=== PATIENT | female | born 1985 | race Caucasian/White ===

== ENCOUNTER → 2016-06-24 | Outpatient (REF) | payer BC | LOC: M SFHCLERA 09:35 | PROVIDERS: ATTEND Family Medicine | DX: N92.6 Irregular menstruation, unspecified (principal) ==

== ENCOUNTER → 2016-06-25 | Outpatient (CLI) | payer BC ==
--- NOTE | 2016-06-25 11:03 | REP ---
PELVIC ULTRASOUND: Real-time sonographic evaluation of pelvis performed utilizing transabdominal and endovaginal technique. Bladder measures 9.5 x 7.4 x 10.0 cm. Uterus is mildly enlarged measuring 12.0 x 5.2 x 6.5 cm. Endometrial thickness is 18 mm. There is no endometrial fluid collection. Right ovary measures 3.3 x 1.9 x 2.8 cm and left ovary 3.5 x 1.9 x 2.1 cm. There is blood flow seen in each ovary with duplex Doppler evaluation, with no torsion. Adjacent to the right ovary is an oval fluid structure measuring 5.3 x 2.3 x 1.4 cm. This may represent hydrosalpinx. There is no other evidence of adnexal mass or free fluid. IMPRESSION: Oval area of fluid adjacent to the right ovary may represent hydrosalpinx measuring 5.3 x 2.3 x 1.4 cm. Further evaluation may be made with MRI if clinically indicated. Endometrial thickness is 18 mm with no endometrial fluid collection. Signed by Mahendra Callaway MD 06/25/2016 01:13 P
== END ==
LOC: M LRY 08:13
PROVIDERS: ATTEND Family Medicine
DX: N92.6 Irregular menstruation, unspecified (principal); N94.89 Other specified conditions associated with female genital organs and menstrual cycle

== ENCOUNTER → 2016-06-25 | Outpatient (REF) | payer BC ==
[2016-06-25 11:14] LABS: MEAN CORPUSCULAR HEMOGLOBIN 30.1 pg (27.0-33.0); MEAN CORPUSCULAR HGB CONC 33.5 g/dl (32.0-36.5); MEAN CORPUSCULAR VOLUME 89.9 fl (80.0-96.0); RED CELL DISTRIBUTION WIDTH 13.1 % (11.5-14.5); WHITE BLOOD COUNT 6.1 K/mm3 (4.0-10.0)
[2016-06-25 11:15] LABS: ALBUMIN 4.4 GM/DL (3.2-5.2); ALBUMIN/GLOBULIN RATIO 1.42 (1.00-1.93); ALKALINE PHOSPHATASE 50 U/L (45-117); ALT/SGPT 18 U/L (12-78); ANION GAP 10 MEQ/L (8-16); AST/SGOT 10 U/L (15-37); BILIRUBIN,TOTAL 0.4 MG/DL (0.2-1.0); BLOOD UREA NITROGEN 11 MG/DL (7-18); CALCIUM LEVEL 9.4 MG/DL (8.5-10.1); CARBON DIOXIDE LEVEL 29 MEQ/L (21-32); CHLORIDE LEVEL 104 MEQ/L (98-107); CREATININE FOR GFR 0.73 MG/DL (0.55-1.02); GLOMERULAR FILTRATION RATE > 60.0 (>60); GLUCOSE, FASTING 77 MG/DL (70-105); POTASSIUM SERUM 4.4 MEQ/L (3.5-5.1); SODIUM LEVEL 143 MEQ/L (136-145); TOTAL PROTEIN 7.5 GM/DL (6.4-8.2)
== END ==
LOC: M SFHCLERA 08:25
PROVIDERS: ATTEND Family Medicine
DX: N92.6 Irregular menstruation, unspecified (principal)

== ENCOUNTER 2016-06-29 10:38 | Emergency (ER) | payer BC ==
[2016-06-29] MEDS ORDERED: KETOROLAC 30 MG/ML VIAL (J1885) As Ordered ONE (13:47)
--- NOTE | 2016-06-29 17:25 | REP ---
MRI study of the pelvis without contrast: History: Pelvic pain, possible hydrosalpinx. Comparison is made with sonography from June 25, 2016. MRI technique: Axial, coronal, and sagittal imaging planes are utilized. T1 and T2-weighted scans are obtained with and without fat saturation. MRI findings: There are Nabothian cysts in the cervix. Uterine dimensions are somewhat enlarged at 10.8 x 5.8 x 7.7 cm. No focal uterine mass lesion is seen. No free fluid is seen in the cul-de-sac. No evidence of hydrosalpinx or other abnormal cystic lesion. Normal ovarian follicles are seen. The largest of these is at the superior margin of the right ovary measuring 1.6 cm. The ovaries are somewhat high in the pelvis bilaterally. Cortical and medullary bone signal intensity is normal. No abdominal wall defect is seen. Impression: Mild uterine enlargement. No evidence of hydrosalpinx or other abnormal fluid collection. Normal ovaries bilaterally. Multiple Nabothian cysts. Signed by King Peace MD 06/29/2016 05:38 P
--- NOTE | 2016-06-29 17:28 | EDDOCDS ---
Physician Documentation [facility] Name: Paulo Zhou Age: 31 yrs Sex: Female : 1985 Arrival Date: 06/29/2016 Time: 10:38 Bed I3 / M3 Private MD: Geronimo Olmstead MD Disposition: 06/29/16 17:11 Discharged to Home/Self Care. Impression: Abdominal and pelvic pain - right lower quadrant unspecified. enlarged uterus and nabothian cysts on MRI. - Condition is Stable. - Discharge Instructions: Abdominal Pain, Adult, Pelvic Pain, Female. - Prescriptions for Ibuprofen 800 mg Oral Tablet - take 1 tablet by ORAL route every 8 hours As needed take with food; 30 tablet. ZOFRAN ODT 4 mg - dissolve 1 tablet by ORAL route 4 times per day As needed do not chew, do not swallow whole; 10 tablet. - Medication Reconciliation, Local Pharmacy Hours form. - Follow up: Geronimo Olmstead; When: Call to arrange an appointment; Reason: Recheck today's complaints, Continuance of care. Follow up: Tawanda Oro; When: Call to arrange an appointment; Reason: Further diagnostic work-up, To establish care. - Problem is new. - Symptoms have improved. Historical: - Allergies: no known allergies; - Home Meds: 1. none - PMHx: none; - PSHx: ; Tubal ligation; Appendectomy; right knee surgery; - Social history: Smoking status: Patient states former smoker of tobacco. No barriers to communication noted, The patient speaks fluent Guatemalan, Speaks appropriately for age. - Family history: Not pertinent. - : The pt / caregiver states he / she is not on anticoagulants. Home medication list is obtained from the patient. - Exposure Risk Screening:: None identified. 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 3 in. (160.02 cm) (R); Pain 7/10; 14:20 Pain 2/10; mcp 15:50 BP 152 / 5; Pulse 79; Resp 18; Temp 98.8; Pulse Ox 99% ; Pain 6/10; jam1 17:12 BP 110 / 72; Pulse 74; Resp 18; Temp 98.0; Pulse Ox 99% ; Pain 5/10; jam1 10:40 Body Mass Index 25.33 (64.86 kg, 160.02 cm) elp MDM: 11:59 UCG by Nursing ordered. hs1 12:00 UA Ordered. EDMS 12:54 Financial registration complete. lg 12:59 UA Reviewed. ar2 13:01 IV Saline Lock ordered. ar2 13:01 Undress patient appropriately for examination ordered. ar2 13:07 [facility] Payment Agreement was scanned into [employer] and attached to record. lg 13:41 MRI Screening Tool - Place on chart, inform RN ordered. ar2 13:41 ketorolac 30 mg IVP once ordered. ar2 13:53 MRI Screening Tool - Place on chart, inform RN complete. jam1 14:15 MRI PELVIS WITHOUT CONTRAST Ordered. EDMS Point of Care Testing: Urine : 12:18 hCG Reading: Negative; Control Reading: Positive; jrd Ranges: Administered Medications: 13:50 Drug: ketorolac 30 mg [ketorolac 30 mg/mL (1 mL) injection solution (1 mL)] Route: IVP; mcp Site: left antecubital; 14:20 Follow up: Pain 2/10 Adult; Response: Pain is decreased mcp Signatures: Dispatcher [employer] EDMS Muriel Miramontes RN RN srm Peters, Mary, RN RN mcp Murphy, Jane, RELEASE ENGINEER RELEASE ENGINEER jam1 Twila Holland, Reg Reg lg Alberto Covington PA-C PA-C ar2 Holly Copeland RN RN hs1 The chart was reviewed and I authenticate all verbal orders and agree with the evaluation and treatment provided.Corrections: (The following items were deleted from the chart) 13:43 13:42 MRI-Abdomen without contrast+MR ordered. EDMS EDMS 13:50 13:50 MRI-Abdomen without contrast+MR ordered. EDMS EDMS Attachments: 13:07 [facility] Payment Agreement lg MTDD
--- NOTE | 2016-06-29 17:28 | EDDOCDS ---
Nurse's Notes [facility] Name: Paulo Zhou Age: 31 yrs Sex: Female : 1985 Arrival Date: 06/29/2016 Time: 10:38 Bed I3 / M3 Private MD: Geronimo Olmstead MD Diagnosis: Abdominal and pelvic pain-right lower quadrant unspecified. enlarged uterus and nabothian cysts on MRI Presentation: 06/29 10:44 Presenting complaint: Patient states: right lower abd since last tue. seen at [facility] urgent care and had u/s done then and dx right fallopian tube was enlarged. had blood work there today also. seen at again today and sent here for further exam. headache, nausea. for the past couple of months change in her menstrual period. Adult Sepsis Screening: The patient does not have new or worsening altered mentation. Patient's respiratory rate is less than 22. Systolic blood pressure is greater than 100. Patient has a qSOFA score of 0- Negative Sepsis Screen. Suicide/Homicide risk assessment- the patient denies having any suicidal and/or homicidal ideations and does not present with any other emotional, behavioral or mental health complaints. Status: Patient is not a banking services advisor or dependent. Transition of care: Patient was received from [facility]. 10:44 Acuity: SAMIR Level 3 [facility] 10:44 Method Of Arrival: Walkin/Carried/Asstd [facility] Triage Assessment: 10:46 General: Appears uncomfortable, Behavior is appropriate for age, cooperative. Pain: [facility] Pain currently is 8 out of 10 on a pain scale. 10:46 HIV screening NA for this visit Offered previously. 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 none - PMHx: none; - PSHx: ; Tubal ligation; Appendectomy; right knee surgery; - Social history: Smoking status: Patient states former smoker of tobacco. No barriers to communication noted, The patient speaks fluent Yoruba, Speaks appropriately for age. - Family history: Not pertinent. - : The pt / caregiver states he / she is not on anticoagulants. Home medication list is obtained from the patient. - Exposure Risk Screening:: None identified. Screenin:34 Screening information is obtained from the patient. Fall risk: No risks identified. mcp Assistance ADL's: requires no assistance with activities of daily living. Abuse/DV Screen: The patient / caregiver reports he/she is: not in a situation that causes fear, pain or injury. Nutritional screening: No deficits noted. Advance Directives: Currently, there is no health care proxy. There is no active DNR order. There is no Power of Can Bander Operator. home support is adequate. Assessment: 13:33 General: Appears uncomfortable, Behavior is cooperative. Pain: Location: right lower mcp quadrant Pain currently is 8 out of 10 on a pain scale. Neurological: No deficits noted. Respiratory: Airway is patent Respiratory effort is even, unlabored. Derm: Skin is pink, warm & dry. 14:30 General: To MRI via wheelchair. mcp 15:30 General: Appears in no apparent distress, Behavior is cooperative, Back from MRI via mcp wheelchair. Neurological: No deficits noted. Respiratory: Airway is patent Respiratory effort is even, unlabored. Derm: Skin is pink, warm & dry. 16:43 General: Resting on stretcher awaiting MRI results. mcp 17:25 General: Appears in no apparent distress, Behavior is cooperative. Neurological: No mcp deficits noted. Respiratory: Airway is patent Respiratory effort is even, unlabored. Derm: Skin is pink, warm & dry. Vital Signs: 10:40 BP 117 / 77; Pulse 81; Resp 18; Temp 98.5(O); Pulse Ox 99% on R/A; Weight 64.86 kg (R); elp Height 5 ft. 3 in. (160.02 cm) (R); Pain 7/10; 14:20 Pain 2/10; mcp 15:50 BP 152 / 5; Pulse 79; Resp 18; Temp 98.8; Pulse Ox 99% ; Pain 6/10; jam1 17:12 BP 110 / 72; Pulse 74; Resp 18; Temp 98.0; Pulse Ox 99% ; Pain 5/10; jam1 10:40 Body Mass Index 25.33 (64.86 kg, 160.02 cm) [facility] Vitals: 10:40 Log In Time: June 29, 2016 at 10:35. [facility] ED Course: 10:40 Patient visited by Mara Choudhury PCA. elp 10:40 Geronimo Olmstead is Private Physician. elp 10:40 Patient visited by Mara Choudhury PCA. elp 10:40 Patient moved to Waiting elp 10:41 Patient moved to Pre RCE elp 10:45 Triage Initiated srm 11:58 Patient moved to Triage 1 hs1 12:23 Patient visited by Holly Copeland RN. hs1 12:43 [facility] ar2 12:43 Malik Awan MD is Attending Physician. ar2 12:43 Patient visited by Alberto Covington PA-C. ar2 13:07 [facility] Payment Agreement was scanned into [employer] and attached to record. lg 13:23 Patient moved to I3 / cj 13:33 Inserted saline lock: 20 gauge in left antecubital area The patient tolerated the mcp procedure well. 13:34 Patient visited by Kristine Heredia RN. mcp 13:34 The patient / caregiver is instructed regarding the plan of care and ED course. Patient mcp has correct armband on for positive identification. Placed in gown. Bed in low position. Call light in reach. Adult w/ patient. 14:51 Patient moved to MRI jam1 15:14 Patient moved to I3 / jam1 16:45 Patient visited by Kristine Heredia RN. mcp 17:10 Geronimo Olmstead is Referral Physician. ar2 17:10 Tawanda Oro is Referral Physician. ar2 17:25 Discontinued lock intact, bleeding controlled, pressure dressing applied, No mcp redness/swelling at site. No procedures done that require assistance. Administered Medications: 13:50 Drug: ketorolac 30 mg [ketorolac 30 mg/mL (1 mL) injection solution (1 mL)] Route: IVP; mcp Site: left antecubital; 14:20 Follow up: Pain 2/10 Adult; Response: Pain is decreased mcp Point of Care Testing: Urine : 12:18 hCG Reading: Negative; Control Reading: Positive; jrd Ranges: Order Results: Lab Order: UA; SPEC'M 06/29/16 12:10 Test: APPEARANCE, URINE; Value: CLEAR; Range: CLEAR; Status: F Test: COLOR, URINE; Value: YELLOW; Range: YELLOW; Status: F Test: PH,URINE; Value: 5.0; Range: 5.0-9.0; Units: UNITS; Status: F Test: SPECIFIC GRAVITY URINE AUTO; Value: 1.010; Range: 1.002-1.035; Status: F Test: PROTEIN, URINE AUTO; Value: NEGATIVE; Range: NEGATIVE; Units: mg/dL; Status: F Test: GLUCOSE, URINE (UA) AUTO; Value: NEGATIVE; Range: NEGATIVE; Units: mg/dL; Status: F Test: KETONE, URINE AUTO; Value: NEGATIVE; Range: NEGATIVE; Units: mg/dL; Status: F Test: UROBILINOGEN, URINE AUTO; Value: 0.2; Range: 0.0-2.0; Units: mg/dL; Status: F Test: BILIRUBIN, URINE AUTO; Value: NEGATIVE; Range: NEGATIVE; Status: F Test: NITRITE, URINE AUTO; Value: NEGATIVE; Range: NEGATIVE; Status: F Test: LEUKOCYTE ESTERASE, URINE AUTO; Value: NEGATIVE; Range: NEGATIVE; Status: F Test: BLOOD, URINE BLOOD; Value: NEGATIVE; Range: NEGATIVE; Status: F Test: WBC, URINE AUTO; Value: 9; Range: 0-3; Abnormal: Above high normal; Units: /HPF; Status: F Test: RBC, URINE AUTO; Value: 3; Range: 0-3; Units: /HPF; Status: F Test: BACTERIA, URINE AUTO; Value: NEGATIVE; Range: NEGATIVE; Status: F Test: SQUAMOUS EPITHELIAL CELL UR AU; Value: 3; Range: 0-6; Units: /HPF; Status: F Test: MUCUS, URINE; Value: SMALL; Range: NEGATIVE; Status: F Test: HYALINE CAST, URINE AUTO; Value: 0; Range: 0-1; Units: /LPF; Status: F Outcome: 17:11 Discharge ordered by Provider. ar2 17:25 Discharge Assessment: patient administered narcotics - no. The following High Risk [facility] Discharge criteria are identified: None. Discharged to home ambulatory, with significant other. Condition: stable. Discharge instructions given to patient, Instructed on discharge instructions, follow up and referral plans. medication usage, Demonstrated understanding of instructions, medications, Pt was receptive of discharge instructions/ teaching. Prescriptions given X 2. MRI Study completed. Property sent home with patient. 17:27 Patient left the ED. [facility] Signatures: Muriel Miramontes RN RN srm Peters, Mary, RN RN mcp Murphy, Jane, KIERAN MANUFACTURING SR ENGINEER Twila Santoyo, Reg Reg lg Alberto Covington, NIA PAAmadou ar2 Holly Copeland, RN RN hs1 Marisol SeayRN RN cjh Mara Choudhury, MANUFACTURING SR ENGINEER MANUFACTURING SR ENGINEER elp Joni Rothman, MANUFACTURING SR ENGINEER MANUFACTURING SR ENGINEER jrd MTDD
--- NOTE | 2016-07-01 18:28 | EDDOCDS ---
Physician Documentation [facility] Name: Paulo Zhou Age: 31 yrs Sex: Female : 1985 Arrival Date: 06/29/2016 Time: 10:38 Bed I3 / M3 Private MD: Geronimo Olmstead MD Disposition: 06/29/16 17:11 Discharged to Home/Self Care. Impression: Abdominal and pelvic pain - right lower quadrant unspecified. enlarged uterus and nabothian cysts on MRI. - Condition is Stable. - Discharge Instructions: Abdominal Pain, Adult, Pelvic Pain, Female. - Prescriptions for Ibuprofen 800 mg Oral Tablet - take 1 tablet by ORAL route every 8 hours As needed take with food; 30 tablet. ZOFRAN ODT 4 mg - dissolve 1 tablet by ORAL route 4 times per day As needed do not chew, do not swallow whole; 10 tablet. - Medication Reconciliation, Local Pharmacy Hours form. - Follow up: Geronimo Olmstead; When: Call to arrange an appointment; Reason: Recheck today's complaints, Continuance of care. Follow up: Tawanda Oro; When: Call to arrange an appointment; Reason: Further diagnostic work-up, To establish care. - Problem is new. - Symptoms have improved. Historical: - Allergies: no known allergies; - Home Meds: 1. none - PMHx: none; - PSHx: ; Tubal ligation; Appendectomy; right knee surgery; - Social history: Smoking status: Patient states former smoker of tobacco. No barriers to communication noted, The patient speaks fluent Rwandan, Speaks appropriately for age. - Family history: Not pertinent. - : The pt / caregiver states he / she is not on anticoagulants. Home medication list is obtained from the patient. - Exposure Risk Screening:: None identified. 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 3 in. (160.02 cm) (R); Pain 7/10; 14:20 Pain 2/10; mcp 15:50 BP 152 / 5; Pulse 79; Resp 18; Temp 98.8; Pulse Ox 99% ; Pain 6/10; jam1 17:12 BP 110 / 72; Pulse 74; Resp 18; Temp 98.0; Pulse Ox 99% ; Pain 5/10; jam1 10:40 Body Mass Index 25.33 (64.86 kg, 160.02 cm) elp MDM: 11:59 UCG by Nursing ordered. hs1 12:00 UA Ordered. EDMS 12:54 Financial registration complete. lg 12:59 UA Reviewed. ar2 13:01 IV Saline Lock ordered. ar2 13:01 Undress patient appropriately for examination ordered. ar2 13:07 [facility] Payment Agreement was scanned into [employer] and attached to record. lg 13:41 MRI Screening Tool - Place on chart, inform RN ordered. ar2 13:41 ketorolac 30 mg IVP once ordered. ar2 13:53 MRI Screening Tool - Place on chart, inform RN complete. jam1 14:15 MRI PELVIS WITHOUT CONTRAST Ordered. EDMS 06/30 12:54 T-Sheet-- Draft Copy was scanned into [employer] and attached to record. gb 12:54 Radiology Report was scanned into [employer] and attached to record. gb Point of Care Testing: Urine : 06/29 12:18 hCG Reading: Negative; Control Reading: Positive; jrd Ranges: Administered Medications: 13:50 Drug: ketorolac 30 mg [ketorolac 30 mg/mL (1 mL) injection solution (1 mL)] Route: IVP; mcp Site: left antecubital; 14:20 Follow up: Pain 2/10 Adult; Response: Pain is decreased mcp Signatures: Dispatcher [employer] EDMS Muriel Miramontes RN Kristine Hebert RN RN mcp Murphy, Jane, CLAIM TAKER CLAIM TAKER jam1 Mel Kline, Reg Reg gb Twila Holland, Reg Reg lg Alberto Covington PA-C PA-C ar2 Holly Copeland RN RN hs1 The chart was reviewed and I authenticate all verbal orders and agree with the evaluation and treatment provided.Corrections: (The following items were deleted from the chart) 13:43 13:42 MRI-Abdomen without contrast+MR ordered. EDMS EDMS 13:50 13:50 MRI-Abdomen without contrast+MR ordered. EDMS EDMS Attachments: 13:07 [facility] Payment Agreement lg 06/30 12:54 T-Sheet-- Draft Copy gb Chart Complete MTDD
--- NOTE | 2016-07-01 18:28 | EDDOCDS ---
Nurse's Notes [facility] Name: Paulo Zhou Age: 31 yrs Sex: Female : 1985 Arrival Date: 06/29/2016 Time: 10:38 Bed I3 / M3 Private MD: Geronimo Olmstead MD Diagnosis: Abdominal and pelvic pain-right lower quadrant unspecified. enlarged uterus and nabothian cysts on MRI Presentation: 06/29 10:44 Presenting complaint: Patient states: right lower abd since last tue. seen at [facility] urgent care and had u/s done then and dx right fallopian tube was enlarged. had blood work there today also. seen at again today and sent here for further exam. headache, nausea. for the past couple of months change in her menstrual period. Adult Sepsis Screening: The patient does not have new or worsening altered mentation. Patient's respiratory rate is less than 22. Systolic blood pressure is greater than 100. Patient has a qSOFA score of 0- Negative Sepsis Screen. Suicide/Homicide risk assessment- the patient denies having any suicidal and/or homicidal ideations and does not present with any other emotional, behavioral or mental health complaints. Status: Patient is not a professional services specialist or dependent. Transition of care: Patient was received from [facility]. 10:44 Acuity: SAMIR Level 3 [facility] 10:44 Method Of Arrival: Walkin/Carried/Asstd [facility] Triage Assessment: 10:46 General: Appears uncomfortable, Behavior is appropriate for age, cooperative. Pain: [facility] Pain currently is 8 out of 10 on a pain scale. 10:46 HIV screening NA for this visit Offered previously. 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 none - PMHx: none; - PSHx: ; Tubal ligation; Appendectomy; right knee surgery; - Social history: Smoking status: Patient states former smoker of tobacco. No barriers to communication noted, The patient speaks fluent Yakut, Speaks appropriately for age. - Family history: Not pertinent. - : The pt / caregiver states he / she is not on anticoagulants. Home medication list is obtained from the patient. - Exposure Risk Screening:: None identified. Screenin:34 Screening information is obtained from the patient. Fall risk: No risks identified. mcp Assistance ADL's: requires no assistance with activities of daily living. Abuse/DV Screen: The patient / caregiver reports he/she is: not in a situation that causes fear, pain or injury. Nutritional screening: No deficits noted. Advance Directives: Currently, there is no health care proxy. There is no active DNR order. There is no Power of Road Oiler. home support is adequate. Assessment: 13:33 General: Appears uncomfortable, Behavior is cooperative. Pain: Location: right lower mcp quadrant Pain currently is 8 out of 10 on a pain scale. Neurological: No deficits noted. Respiratory: Airway is patent Respiratory effort is even, unlabored. Derm: Skin is pink, warm & dry. 14:30 General: To MRI via wheelchair. mcp 15:30 General: Appears in no apparent distress, Behavior is cooperative, Back from MRI via mcp wheelchair. Neurological: No deficits noted. Respiratory: Airway is patent Respiratory effort is even, unlabored. Derm: Skin is pink, warm & dry. 16:43 General: Resting on stretcher awaiting MRI results. mcp 17:25 General: Appears in no apparent distress, Behavior is cooperative. Neurological: No mcp deficits noted. Respiratory: Airway is patent Respiratory effort is even, unlabored. Derm: Skin is pink, warm & dry. Vital Signs: 10:40 BP 117 / 77; Pulse 81; Resp 18; Temp 98.5(O); Pulse Ox 99% on R/A; Weight 64.86 kg (R); elp Height 5 ft. 3 in. (160.02 cm) (R); Pain 7/10; 14:20 Pain 2/10; mcp 15:50 BP 152 / 5; Pulse 79; Resp 18; Temp 98.8; Pulse Ox 99% ; Pain 6/10; jam1 17:12 BP 110 / 72; Pulse 74; Resp 18; Temp 98.0; Pulse Ox 99% ; Pain 5/10; jam1 10:40 Body Mass Index 25.33 (64.86 kg, 160.02 cm) [facility] Vitals: 10:40 Log In Time: June 29, 2016 at 10:35. [facility] ED Course: 10:40 Patient visited by Mara Choudhury PCA. elp 10:40 Geronimo Olmstead is Private Physician. elp 10:40 Patient visited by Mara Choudhury PCA. elp 10:40 Patient moved to Waiting elp 10:41 Patient moved to Pre RCE elp 10:45 Triage Initiated srm 11:58 Patient moved to Triage 1 hs1 12:23 Patient visited by Holly Copeland RN. hs1 12:43 Alberto Covington PA-C is [facility]. ar2 12:43 Malik Awan MD is Attending Physician. ar2 12:43 Patient visited by Alebrto Covington PA-C. ar2 13:07 [facility] Payment Agreement was scanned into [employer] and attached to record. lg 13:23 Patient moved to I3 / M3 cjh 13:33 Inserted saline lock: 20 gauge in left antecubital area The patient tolerated the mcp procedure well. 13:34 Patient visited by Kristine Heredia RN. mcp 13:34 The patient / caregiver is instructed regarding the plan of care and ED course. Patient mcp has correct armband on for positive identification. Placed in gown. Bed in low position. Call light in reach. Adult w/ patient. 14:51 Patient moved to MRI jam1 15:14 Patient moved to I3 / M3 jam1 16:45 Patient visited by Kristine Heredia RN. mcp 17:10 Geronimo Olmstead is Referral Physician. ar2 17:10 Tawanda Oro is Referral Physician. ar2 17:25 Discontinued lock intact, bleeding controlled, pressure dressing applied, No mcp redness/swelling at site. No procedures done that require assistance. 18:16 MRI PELVIS WITHOUT CONTRAST Returned. EDMS 06/30 12:54 T-Sheet-- Draft Copy was scanned into [employer] and attached to record. gb 12:54 Radiology Report was scanned into [employer] and attached to record. gb Administered Medications: 06/29 13:50 Drug: ketorolac 30 mg [ketorolac 30 mg/mL (1 mL) injection solution (1 mL)] Route: IVP; mcp Site: left antecubital; 14:20 Follow up: Pain 2/10 Adult; Response: Pain is decreased mcp Point of Care Testing: Urine : 12:18 hCG Reading: Negative; Control Reading: Positive; jrd Ranges: Order Results: Lab Order: UA; SPEC'M 06/29/16 12:10 Test: APPEARANCE, URINE; Value: CLEAR; Range: CLEAR; Status: F Test: COLOR, URINE; Value: YELLOW; Range: YELLOW; Status: F Test: PH,URINE; Value: 5.0; Range: 5.0-9.0; Units: UNITS; Status: F Test: SPECIFIC GRAVITY URINE AUTO; Value: 1.010; Range: 1.002-1.035; Status: F Test: PROTEIN, URINE AUTO; Value: NEGATIVE; Range: NEGATIVE; Units: mg/dL; Status: F Test: GLUCOSE, URINE (UA) AUTO; Value: NEGATIVE; Range: NEGATIVE; Units: mg/dL; Status: F Test: KETONE, URINE AUTO; Value: NEGATIVE; Range: NEGATIVE; Units: mg/dL; Status: F Test: UROBILINOGEN, URINE AUTO; Value: 0.2; Range: 0.0-2.0; Units: mg/dL; Status: F Test: BILIRUBIN, URINE AUTO; Value: NEGATIVE; Range: NEGATIVE; Status: F Test: NITRITE, URINE AUTO; Value: NEGATIVE; Range: NEGATIVE; Status: F Test: LEUKOCYTE ESTERASE, URINE AUTO; Value: NEGATIVE; Range: NEGATIVE; Status: F Test: BLOOD, URINE BLOOD; Value: NEGATIVE; Range: NEGATIVE; Status: F Test: WBC, URINE AUTO; Value: 9; Range: 0-3; Abnormal: Above high normal; Units: /HPF; Status: F Test: RBC, URINE AUTO; Value: 3; Range: 0-3; Units: /HPF; Status: F Test: BACTERIA, URINE AUTO; Value: NEGATIVE; Range: NEGATIVE; Status: F Test: SQUAMOUS EPITHELIAL CELL UR AU; Value: 3; Range: 0-6; Units: /HPF; Status: F Test: MUCUS, URINE; Value: SMALL; Range: NEGATIVE; Status: F Test: HYALINE CAST, URINE AUTO; Value: 0; Range: 0-1; Units: /LPF; Status: F Radiology Order: MRI PELVIS WITHOUT CONTRAST Test: MRI PELVIS WITHOUT CONTRAST REASON FOR EXAMINATION: right hydrosalpinx; MRI study of the pelvis without contrast:; ; History: Pelvic pain, possible hydrosalpinx.; ; Comparison is made with sonography from June 25, 2016.; ; MRI technique: Axial, coronal, and sagittal imaging planes are utilized. T1 and; T2-weighted scans are obtained with and without fat saturation.; ; MRI findings: There are Nabothian cysts in the cervix. Uterine dimensions are; somewhat enlarged at 10.8 x 5.8 x 7.7 cm. No focal uterine mass lesion is seen.; No free fluid is seen in the cul-de-sac. No evidence of hydrosalpinx or other; abnormal cystic lesion. Normal ovarian follicles are seen. The largest of these; is at the superior margin of the right ovary measuring 1.6 cm. The ovaries are; somewhat high in the pelvis bilaterally. Cortical and medullary bone signal; intensity is normal. No abdominal wall defect is seen.; ; Impression:; ; Mild uterine enlargement. No evidence of hydrosalpinx or other abnormal fluid; collection. Normal ovaries bilaterally. Multiple Nabothian cysts.; ; ; Signed by; King Peace MD 06/29/2016 05:38 P; Outcome: 17:11 Discharge ordered by Provider. ar2 17:25 Discharge Assessment: patient administered narcotics - no. The following High Risk [facility] Discharge criteria are identified: None. Discharged to home ambulatory, with significant other. Condition: stable. Discharge instructions given to patient, Instructed on discharge instructions, follow up and referral plans. medication usage, Demonstrated understanding of instructions, medications, Pt was receptive of discharge instructions/ teaching. Prescriptions given X 2. MRI Study completed. Property sent home with patient. 17:27 Patient left the ED. [facility] Signatures: Dispatcher [employer] EDMS Muriel Miramontes, RN RAMIREZ [facility] Kristine Heredia RN RN mcp Murphy, Jane, CONTRACTOR GENERAL BUILDING CONTRACTOR GENERAL BUILDING jam1 Mel Kline, Reg Reg gb Twila Holland, Reg Reg lg Alberto Covington, NIA PA-Tony ar2 Holly Copeland RN RN hs1 Marisol Seay RN RN [facility] Mara Choudhury, CONTRACTOR GENERAL BUILDING CONTRACTOR GENERAL BUILDING elp Joni Rothman, CONTRACTOR GENERAL BUILDING CONTRACTOR GENERAL BUILDING jrd Chart Complete MTDD
--- NOTE | 2016-07-01 18:28 | EDDOCDS ---
Physician Documentation [facility] Name: Paulo Zhou Age: 31 yrs Sex: Female : 1985 Arrival Date: 06/29/2016 Time: 10:38 Bed I3 / M3 Private MD: Geronimo Olmstead MD Disposition: 06/29/16 17:11 Discharged to Home/Self Care. Impression: Abdominal and pelvic pain - right lower quadrant unspecified. enlarged uterus and nabothian cysts on MRI. - Condition is Stable. - Discharge Instructions: Abdominal Pain, Adult, Pelvic Pain, Female. - Prescriptions for Ibuprofen 800 mg Oral Tablet - take 1 tablet by ORAL route every 8 hours As needed take with food; 30 tablet. ZOFRAN ODT 4 mg - dissolve 1 tablet by ORAL route 4 times per day As needed do not chew, do not swallow whole; 10 tablet. - Medication Reconciliation, Local Pharmacy Hours form. - Follow up: Geronimo Olmstead; When: Call to arrange an appointment; Reason: Recheck today's complaints, Continuance of care. Follow up: Tawanda Oro; When: Call to arrange an appointment; Reason: Further diagnostic work-up, To establish care. - Problem is new. - Symptoms have improved. Historical: - Allergies: no known allergies; - Home Meds: 1. none - PMHx: none; - PSHx: ; Tubal ligation; Appendectomy; right knee surgery; - Social history: Smoking status: Patient states former smoker of tobacco. No barriers to communication noted, The patient speaks fluent Romanian, Speaks appropriately for age. - Family history: Not pertinent. - : The pt / caregiver states he / she is not on anticoagulants. Home medication list is obtained from the patient. - Exposure Risk Screening:: None identified. 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 3 in. (160.02 cm) (R); Pain 7/10; 14:20 Pain 2/10; mcp 15:50 BP 152 / 5; Pulse 79; Resp 18; Temp 98.8; Pulse Ox 99% ; Pain 6/10; jam1 17:12 BP 110 / 72; Pulse 74; Resp 18; Temp 98.0; Pulse Ox 99% ; Pain 5/10; jam1 10:40 Body Mass Index 25.33 (64.86 kg, 160.02 cm) elp MDM: 11:59 UCG by Nursing ordered. hs1 12:00 UA Ordered. EDMS 12:54 Financial registration complete. lg 12:59 UA Reviewed. ar2 13:01 IV Saline Lock ordered. ar2 13:01 Undress patient appropriately for examination ordered. ar2 13:07 [facility] [place] was scanned into [employer] and attached to record. lg 13:41 MRI Screening Tool - Place on chart, inform RN ordered. ar2 13:41 ketorolac 30 mg IVP once ordered. ar2 13:53 MRI Screening Tool - Place on chart, inform RN complete. jam1 14:15 MRI PELVIS WITHOUT CONTRAST Ordered. EDMS 06/30 12:54 T-Sheet-- Draft Copy was scanned into [employer] and attached to record. gb 12:54 Radiology Report was scanned into [employer] and attached to record. gb Point of Care Testing: Urine : 06/29 12:18 hCG Reading: Negative; Control Reading: Positive; jrd Ranges: Administered Medications: 13:50 Drug: ketorolac 30 mg [ketorolac 30 mg/mL (1 mL) injection solution (1 mL)] Route: IVP; mcp Site: left antecubital; 14:20 Follow up: Pain 2/10 Adult; Response: Pain is decreased mcp Signatures: Dispatcher [employer] EDMS Muriel Miramontes RN Kristine Hebert RN RN mcp Murphy, Jane, FLOOR COVERER FLOOR COVERER jam1 Mel Kline, Reg Reg gb Twila Holland, Reg Reg lg Alberto Covington PA-C PA-C ar2 Holly Copeland RN RN hs1 The chart was reviewed and I authenticate all verbal orders and agree with the evaluation and treatment provided.Corrections: (The following items were deleted from the chart) 13:43 13:42 MRI-Abdomen without contrast+MR ordered. EDMS EDMS 13:50 13:50 MRI-Abdomen without contrast+MR ordered. EDMS EDMS Attachments: 13:07 [facility] Payment Agreement lg 06/30 12:54 T-Sheet-- Draft Copy gb Chart Complete MTDD
== END 2016-06-29 17:27 | disposition home or self-care (01) ==
LOC: M ED 10:38
DX: R10.2 Pelvic and perineal pain (principal); R10.31 Right lower quadrant pain; Z87.891 Personal history of nicotine dependence
CPT/HCPCS: 72195; 81001; 81025; 96374; 99284; J1885

== ENCOUNTER → 2016-06-29 | Outpatient (REF) | payer BC | LOC: M SFHCLERA 08:10 | PROVIDERS: ATTEND Family Medicine | DX: N70.11 Chronic salpingitis (principal) ==

== ENCOUNTER → 2016-06-29 | Outpatient (CLI) | payer BC ==
[2016-06-29 09:55] LABS: MEAN CORPUSCULAR HEMOGLOBIN 30.1 pg (27.0-33.0); MEAN CORPUSCULAR HGB CONC 33.4 g/dl (32.0-36.5); MEAN CORPUSCULAR VOLUME 90.2 fl (80.0-96.0); RED CELL DISTRIBUTION WIDTH 12.3 % (11.5-14.5); WHITE BLOOD COUNT 4.5 K/mm3 (4.0-10.0)
[2016-06-29 10:03] LABS: ALBUMIN 4.3 GM/DL (3.2-5.2); ALBUMIN/GLOBULIN RATIO 1.19 (1.00-1.93); ALKALINE PHOSPHATASE 50 U/L (45-117); ALT/SGPT 21 U/L (12-78); ANION GAP 8 MEQ/L (8-16); AST/SGOT 14 U/L (15-37); BILIRUBIN,TOTAL 0.3 MG/DL (0.2-1.0); BLOOD UREA NITROGEN 12 MG/DL (7-18); CALCIUM LEVEL 9.4 MG/DL (8.5-10.1); CARBON DIOXIDE LEVEL 27 MEQ/L (21-32); CHLORIDE LEVEL 105 MEQ/L (98-107); CREATININE FOR GFR 0.74 MG/DL (0.55-1.02); GLOMERULAR FILTRATION RATE > 60.0 (>60); GLUCOSE, FASTING 87 MG/DL (70-105); POTASSIUM SERUM 4.2 MEQ/L (3.5-5.1); SODIUM LEVEL 140 MEQ/L (136-145); TOTAL PROTEIN 7.9 GM/DL (6.4-8.2)
[2016-06-29 10:27] LABS: BASOPHILS 2 % (0-4); EOSINOPHILS 3 % (0-5)
== END ==
LOC: M LAB 09:06
PROVIDERS: ATTEND Family Medicine
DX: N70.11 Chronic salpingitis (principal)

== ENCOUNTER → 2021-09-14 | Outpatient (CLI) | payer OTHER ==
[2021-09-14 09:39] LABS: BASO % 0.8 % (0.0-1.0); EOS # 0.1 10^3/uL (0.0-0.5); EOS % 2.6 % (0.0-3.0); HEMATOCRIT 44.7 % (36.0-47.0); HEMOGLOBIN 14.8 g/dl (12.0-15.5); LYMPH # 1.3 10^3/uL (1.5-5.0); LYMPH % 24.9 % (24.0-44.0); MEAN CORPUSCULAR HGB CONC 33.1 g/dl (32.0-36.5); MEAN CORPUSCULAR VOLUME 93.5 fl (80.0-96.0); MONO # 0.4 10^3/uL (0.0-0.8); MONO % 7.2 % (2.0-8.0); NEUTROPHILS # 3.4 10^3/uL (1.5-8.5); NEUTROPHILS % 64.3 % (36.0-66.0); PLATELET COUNT, AUTOMATED 201 10^3/uL (150-450); RED BLOOD COUNT 4.78 10^6/uL (4.00-5.40); WHITE BLOOD COUNT 5.3 10^3/uL (4.0-10.0)
[2021-09-14 10:15] LABS: FREE T4 1.03 NG/DL (0.76-1.46); PROLACTIN 4.9 NG/ML; THYROID STIMULATING HORMONE 0.915 uIU/ML (0.358-3.740)
== END ==
LOC: M LAB 08:15
PROVIDERS: ATTEND Obstetrics & Gynecology
DX: N92.6 Irregular menstruation, unspecified (principal)

== ENCOUNTER → 2021-09-21 | Outpatient (CLI) | payer OTHER | LOC: M WHC 06:43 | PROVIDERS: ATTEND Obstetrics & Gynecology | DX: D25.1 Intramural leiomyoma of uterus (principal) ==

== ENCOUNTER → 2021-10-26 | Outpatient (CLI) | payer OTHER ==
[2021-10-26 10:50] LABS: BASO # 0.1 10^3/uL (0.0-0.2); BASO % 0.7 % (0.0-1.0); EOS # 0.2 10^3/uL (0.0-0.5); EOS % 2.8 % (0.0-3.0); HEMATOCRIT 43.7 % (36.0-47.0); HEMOGLOBIN 14.2 g/dl (12.0-15.5); LYMPH # 1.6 10^3/uL (1.5-5.0); LYMPH % 23.7 % (24.0-44.0); MEAN CORPUSCULAR HEMOGLOBIN 30.6 pg (27.0-33.0); MEAN CORPUSCULAR HGB CONC 32.5 g/dl (32.0-36.5); MEAN CORPUSCULAR VOLUME 94.2 fl (80.0-96.0); MONO # 0.5 10^3/uL (0.0-0.8); MONO % 7.6 % (2.0-8.0); NEUTROPHILS # 4.5 10^3/uL (1.5-8.5); NEUTROPHILS % 65.1 % (36.0-66.0); PLATELET COUNT, AUTOMATED 205 10^3/uL (150-450); RED BLOOD COUNT 4.64 10^6/uL (4.00-5.40); WHITE BLOOD COUNT 6.9 10^3/uL (4.0-10.0)
[2021-10-26 11:19] LABS: ALBUMIN 3.7 GM/DL (3.2-5.2); ALT/SGPT 16 U/L (12-78); BILIRUBIN,TOTAL 0.3 MG/DL (0.2-1.0); BLOOD UREA NITROGEN 12 MG/DL (7-18); CALCIUM LEVEL 9.8 MG/DL (8.5-10.1); CARBON DIOXIDE LEVEL 31 MEQ/L (21-32); CHLORIDE LEVEL 107 MEQ/L (98-107); CHOLESTEROL LEVEL 168 MG/DL (<200); CREATININE FOR GFR 0.71 MG/DL (0.55-1.30); GLOMERULAR FILTRATION RATE > 60.0 (>60); GLUCOSE, FASTING 70 MG/DL (70-100); HDL CHOLESTEROL 76 MG/DL (>40); LDL CHOLESTEROL 83 MG/DL (<100); NON-HDL-C 92 MG/DL; POTASSIUM SERUM 4.1 MEQ/L (3.5-5.1); SODIUM LEVEL 142 MEQ/L (136-145); TOTAL PROTEIN 6.7 GM/DL (6.4-8.2); TRIGLYCERIDES LEVEL 44 MG/DL (<150)
== END ==
LOC: M LAB 09:54
PROVIDERS: ATTEND Student in an Organized Health Care Education/Training Program
DX: Z00.00 Encounter for general adult medical examination without abnormal findings (principal); E78.5 Hyperlipidemia, unspecified

== ENCOUNTER → 2022-01-26 | Outpatient (CLI) | payer OTHER | LOC: M SOG 09:22 | PROVIDERS: ATTEND Orthopaedic Surgery Hand Surgery | DX: G56.03 Carpal tunnel syndrome, bilateral upper limbs (principal) ==

== ENCOUNTER → 2022-02-15 | Outpatient (CLI) | payer OTHER | LOC: M SOG 14:06 | PROVIDERS: ATTEND Physician Assistant | DX: M25.532 Pain in left wrist (principal); M25.531 Pain in right wrist ==

== ENCOUNTER → 2022-09-15 | Outpatient (REF) | payer OTHER ==
[2022-09-15 13:02] LABS: BASO # 0.1 10^3/uL (0.0-0.2); BASO % 0.9 % (0.0-1.0); EOS # 0.2 10^3/uL (0.0-0.5); EOS % 3.7 % (0.0-3.0); HEMATOCRIT 40.7 % (36.0-47.0); HEMOGLOBIN 13.5 g/dl (12.0-15.5); LYMPH # 1.1 10^3/uL (1.5-5.0); LYMPH % 18.9 % (24.0-44.0); MEAN CORPUSCULAR HGB CONC 33.2 g/dl (32.0-36.5); MEAN CORPUSCULAR VOLUME 93.6 fl (80.0-96.0); MONO # 0.3 10^3/uL (0.0-0.8); MONO % 5.8 % (2.0-8.0); NEUTROPHILS % 70.4 % (36.0-66.0); PLATELET COUNT, AUTOMATED 204 10^3/uL (150-450); RED BLOOD COUNT 4.35 10^6/uL (4.00-5.40); WHITE BLOOD COUNT 5.7 10^3/uL (4.0-10.0)
[2022-09-15 13:10] LABS: ALKALINE PHOSPHATASE 51 U/L (46-116); ALT/SGPT 15 U/L (7.0-40); AST/SGOT 15 U/L (<34); BILIRUBIN,TOTAL 0.6 MG/DL (0.3-1.2); BLOOD UREA NITROGEN 11 MG/DL (9-23); CALCIUM LEVEL 9.1 MG/DL (8.5-10.1); CARBON DIOXIDE LEVEL 26 MMOL/L (20-31); CHLORIDE LEVEL 108 MMOL/L (98-107); CHOLESTEROL LEVEL 174 MG/DL (<200); CHOLESTEROL RISK RATIO 2.32 (<5); CREATININE FOR GFR 0.71 MG/DL (0.55-1.30); GLOMERULAR FILTRATION RATE > 60.0 (>60); GLUCOSE, FASTING 76 MG/DL (60-100); HDL CHOLESTEROL 74.8 MG/DL (>40); LDL CHOLESTEROL 90.8 MG/DL (<100); NON-HDL-C 99.2 MG/DL; POTASSIUM SERUM 4.5 MMOL/L (3.5-5.1); SODIUM LEVEL 139 MMOL/L (136-145); TOTAL PROTEIN 6.9 G/DL (5.7-8.2); TRIGLYCERIDES LEVEL 42 MG/DL (<150)
[2022-09-15 13:11] LABS: THYROID STIMULATING HORMONE 0.837 uIU/ML (0.55-4.78)
[2022-09-15 13:12] LABS: TOTAL 25(OH) VITAMIN D 26.9 NG/ML (20.0-100.0)
[2022-09-15 13:44] LABS: HEMOGLOBIN A1c 5.2 % (4.0-6.0)
== END ==
LOC: M LAB REF 12:14
PROVIDERS: ATTEND Nurse Practitioner Family
DX: N92.0 Excessive and frequent menstruation with regular cycle (principal); E66.3 Overweight; E55.9 Vitamin D deficiency, unspecified; Z11.9 Encounter for screening for infectious and parasitic diseases, unspecified

== ENCOUNTER → 2022-10-27 | Outpatient (CLI) | payer OTHER | LOC: M RAD 06:59 | PROVIDERS: ATTEND Nurse Practitioner Family | DX: R22.42 Localized swelling, mass and lump, left lower limb (principal) ==

== ENCOUNTER → 2023-01-25 | Outpatient (CLI) | payer OTHER | LOC: M WHC 07:55 | PROVIDERS: ATTEND Nurse Practitioner Family | DX: R10.2 Pelvic and perineal pain (principal); N94.6 Dysmenorrhea, unspecified ==

== ENCOUNTER → 2023-04-08 | Outpatient (CLI) | payer OTHER | LOC: M WHC 07:14 | PROVIDERS: ATTEND Nurse Practitioner Family | DX: Z12.31 Encounter for screening mammogram for malignant neoplasm of breast (principal) ==

== ENCOUNTER → 2023-04-08 | Outpatient (REF) | payer OTHER | LOC: M PLALAB 08:45 | PROVIDERS: ATTEND Nurse Practitioner Family | DX: Z12.4 Encounter for screening for malignant neoplasm of cervix (principal); R87.5 Abnormal microbiological findings in specimens from female genital organs ==

== ENCOUNTER → 2023-04-11 | Outpatient (CLI) | payer OTHER | LOC: M RAD 07:57 | PROVIDERS: ATTEND Surgery | DX: I83.893 Varicose veins of bilateral lower extremities with other complications (principal) ==

== ENCOUNTER → 2023-07-18 | Outpatient (REF) | payer OTHER ==
[~2023-07-18] MED LIST: THERTAB52 PO
== END ==
LOC: M SFHCWAGY 09:51
PROVIDERS: ATTEND Obstetrics & Gynecology
DX: N93.9 Abnormal uterine and vaginal bleeding, unspecified (principal)

== ENCOUNTER 2023-08-08 06:05 | Observation (INO) | payer OTHER ==
[~2023-08-08] VITALS: Ht 160 cm; Wt 67.1 kg
[2023-08-08] VITALS (8 sets, daily range): BP systolic 81–130; BP diastolic 47–88; TEMP 97–97.7; O2SAT 94–97
[2023-08-08] MEDS ORDERED: LR 1,000 ML IV SCH (06:45)
[2023-08-08 07:05] LABS: HEMATOCRIT 43.2 % (36.0-47.0); HEMOGLOBIN 14.6 g/dl (12.0-15.5); MEAN CORPUSCULAR HEMOGLOBIN 31.3 pg (27.0-33.0); MEAN CORPUSCULAR HGB CONC 33.8 g/dl (32.0-36.5); MEAN CORPUSCULAR VOLUME 92.7 fl (80.0-96.0); PLATELET COUNT, AUTOMATED 241 10^3/uL (150-450); RED BLOOD COUNT 4.66 10^6/uL (4.00-5.40); WHITE BLOOD COUNT 5.9 10^3/uL (4.0-10.0)
[2023-08-08] MEDS: ceFAZolin SOD 2 GM in IV 1 EA IV ONE (07:40)
[2023-08-08] MEDS ORDERED: ONDANSETRON 4MG 2ML VIAL As Ordered ONE (08:12)
[2023-08-08] MEDS ORDERED: GLYCOPYRROLATE INJ 0.2 MG/ML 2 ML VIAL As Ordered ONE (08:12)
[2023-08-08] MEDS ORDERED: MIDAZOLAM INJ 2MG/2ML VIAL As Ordered ONE (08:12)
[2023-08-08] MEDS ORDERED: KETOROLAC 60MG 2ML VIAL As Ordered ONE (08:12)
[2023-08-08] MEDS ORDERED: PHENYLephrine 500MCG 5ML (100MCG/ML) SYRINGE As Ordered ONE (08:12)
[2023-08-08] MEDS ORDERED: LIDOCAINE 2% 100MG/5ML SDV (FOR ANES.) As Ordered ONE (08:12)
[2023-08-08] MEDS ORDERED: ROCURONIUM BROMIDE 50MG/5ML VIAL As Ordered ONE (08:12)
[2023-08-08] MEDS ORDERED: fentaNYL 100 MCG/2 ML INJECTION As Ordered ONE (08:12)
[2023-08-08] MEDS ORDERED: SUGAMMADEX SODIUM 500 MG/5 ML VIAL (BRIDION) As Ordered ONE (08:12)
[2023-08-08] MEDS ORDERED: HYDROmorphone HCL 2MG/ML 1ML VIAL As Ordered ONE (08:12)
[2023-08-08] MEDS ORDERED: propofoL 200 MG/20 ML VIAL As Ordered ONE (08:12)
[2023-08-08] MEDS ORDERED: ACETAMINOPHEN 1000MG 100ML IV BAG As Ordered ONE (08:12)
[2023-08-08] MEDS ORDERED: ePHEDrine SULFATE 25 MG/5 ML(5MG/ML) SYRINGE As Ordered ONE (08:12)
[2023-08-08] MEDS: METHYLENE BLUE 0.5% (5MG/ML) 10 ML AMP (PROVAYBLUE) As Ordered ONE (09:02)
[2023-08-08] MEDS ORDERED: ONDANSETRON 4MG 2ML VIAL IV PRN (10:20)
[2023-08-08] MEDS ORDERED: fentaNYL 100 MCG/2 ML INJECTION IV PRN (10:20)
[2023-08-08] MEDS: LR 1,000 ML IV SCH (10:20)
[2023-08-08] MEDS ORDERED: oxyCODONE 5MG TAB PO PRN (10:20)
[2023-08-08] MEDS ORDERED: HYDROMORPHONE HCL 0.5 MG/ 0.5 ML SYRINGE IV PRN (10:20)
[2023-08-08] MEDS ORDERED: MORPHINE 4 MG/ML 1ML VIAL IV PRN (10:45)
[2023-08-08] MEDS ORDERED: PROMETHAZINE 25MG/ML 1ML VIAL IV PRN (10:45)
[2023-08-08] MEDS ORDERED: PERCOCET PO (10:58)
[2023-08-08] MEDS ORDERED: COLA100C5 PO (10:58)
[2023-08-08] MEDS ORDERED: IBUP80TA PO (10:58)
[2023-08-08] MEDS: ONDANSETRON 4MG 2ML VIAL IV PRN (13:13)
[2023-08-08] MEDS: PERCOCET 5MG/325MG TAB PO PRN ×2 (13:59→17:59)
[2023-08-08] MEDS: KETOROLAC 30 MG/ML 1ML VIAL IV SCH (14:53)
[2023-08-08] MEDS: PROMETHAZINE 25 MG TAB PO PRN (16:32)
[2023-08-08] MEDS: DOCUSATE SODIUM 100MG CAPSULE PO SCH (20:11)
[2023-08-09] VITALS: BP 105/68; TEMP 97.7; O2SAT 95
[2023-08-09 00:12] VITALS: BP 105/68; TEMP 97.7; O2SAT 95
[2023-08-09 04:15] VITALS: BP 105/61; TEMP 97.9; O2SAT 94
[2023-08-09] MEDS: IBUPROFEN 800 MG TAB PO SCH (09:30)
== END 2023-08-09 13:50 | disposition home or self-care (01) ==
LOC: M SDC 06:05 → M RR INP 10:44 → M MS5PR 11:20
PROVIDERS: ADMIT Obstetrics & Gynecology; ATTEND Obstetrics & Gynecology
DX: D25.9 Leiomyoma of uterus, unspecified (principal); R10.2 Pelvic and perineal pain; N73.6 Female pelvic peritoneal adhesions (postinfective); F17.200 Nicotine dependence, unspecified, uncomplicated; F12.10 Cannabis abuse, uncomplicated
CPT/HCPCS: 36415; 58571; 81025; 85027; 86850; 86900; 86901; 88307; 96374; 96375; 96376; J0131; J0665; J0690; J1100; J1170; J1885; J2250; J2371; J2405; J3010; Q9968; S2900

== ENCOUNTER → 2023-10-06 | Outpatient (REF) | payer OTHER ==
[~2023-10-06] MED LIST changes: +COLA100C5 PO; +IBUP80TA PO; +PERCOCET PO
[2023-10-06 14:11] LABS: BLOOD UREA NITROGEN 15 MG/DL (9-23); CALCIUM LEVEL 9.6 MG/DL (8.5-10.1); CARBON DIOXIDE LEVEL 27 MMOL/L (20-31); CHLORIDE LEVEL 106 MMOL/L (98-107); CHOLESTEROL LEVEL 149 MG/DL (<200); CHOLESTEROL RISK RATIO 2.45 (<5); CREATININE FOR GFR 0.73 MG/DL (0.55-1.30); GLOMERULAR FILTRATION RATE > 60.0 (>58); GLUCOSE, FASTING 74 MG/DL (60-100); HDL CHOLESTEROL 60.7 MG/DL (>40); LDL CHOLESTEROL 81.5 MG/DL (<100); NON-HDL-C 88.3 MG/DL; POTASSIUM SERUM 4.3 MMOL/L (3.5-5.1); SODIUM LEVEL 139 MMOL/L (136-145); TRIGLYCERIDES LEVEL 34 MG/DL (<150)
[2023-10-06 14:13] LABS: THYROID STIMULATING HORMONE 1.441 uIU/ML (0.55-4.78); TOTAL 25(OH) VITAMIN D 29.6 NG/ML (20.0-100.0)
== END ==
LOC: M LAB REF 12:42
PROVIDERS: ATTEND Nurse Practitioner Family
DX: E55.9 Vitamin D deficiency, unspecified (principal); Z68.26 Body mass index [BMI] 26.0-26.9, adult; E66.3 Overweight

== ENCOUNTER → 2024-04-10 | Outpatient (CLI) | payer OTHER | LOC: M WHC 08:15 | PROVIDERS: ATTEND Nurse Practitioner Family | DX: Z12.31 Encounter for screening mammogram for malignant neoplasm of breast (principal) ==